=== PATIENT | male | born 1980 | race African-American/Black ===

== ENCOUNTER 2018-04-04 23:00 | Emergency (ER) | payer MEDICAID ==
[~2018-04-04] VITALS: Ht 198.1 cm; Wt 74.0 kg
[2018-04-05 01:21] LABS: BASOPHILS % 0.8 % (0.0-2.0); EOSINOPHILS % 2.7 % (0.0-5.0); HEMATOCRIT. 43.6 % (42.0-52.0); LYMPHOCYTES % 49.7 % (20.0-50.0); MEAN CORPUSCULAR HEMOGLOBIN 33.1 pg (28.0-32.0); MEAN CORPUSCULAR VOLUME 96.4 fL (80.0-94.0); MEAN PLATELET VOLUME 7.7 fl (7.4-10.4); MONOCYTES % 8.8 % (2.0-8.0); PLATELET 234 x1000/uL (130-400); RED BLOOD CELL COUNT 4.52 mill/uL (4.7-6.1); RED CELL DISTRIBUTION WIDTH 12.3 % (11.6-14.6)
[2018-04-05 01:35] LABS: CHLORIDE 101 mEq/L (98-107)
[2018-04-05 03:38] VITALS: BP 123/78
== END 2018-04-05 03:40 | disposition home or self-care (01) ==
LOC: ER 23:00
DX: R07.9 Chest pain, unspecified (principal); J45.909 Unspecified asthma, uncomplicated; F12.10 Cannabis abuse, uncomplicated; F17.210 Nicotine dependence, cigarettes, uncomplicated
CPT/HCPCS: 36415; 71045; 80053; 83690; 84484; 85025; 85379; 93005; 99285; 99406